=== PATIENT | female | born 1975 | race Caucasian/White ===

== ENCOUNTER 2020-04-09 14:41 | Emergency (ER) | payer MEDICAID ==
[~2020-04-09] VITALS: Ht 154.9 cm; Wt 64.4 kg
[2020-04-09 14:48] VITALS: BP 131/85
--- NOTE | 2020-04-09 14:57 | NUR ---
PER PT FELL X 1 WEEK AGO, PT WENT TO GET A MASSAGE ON ANKLE, DID NOT FOLLOW UP WITH A DOCTOR. PT CURRENTLY CONCERNED OF INJURY, PER PT REQUESTING XRAY. PT PRESENTS EUPNIC,VSS,A/OX4. NKA. HX NO. RX NO. DENIES NVD. LIMITED ROM;[facility]. SIDE RAIL X1.
--- NOTE | 2020-04-09 14:58 | NUR ---
PT RESTING IN BED, SIDE RAIL X1
[2020-04-09] MEDS ORDERED: IBUPROFEN 600 MG TAB PO ONE (15:15)
--- NOTE | 2020-04-09 16:23 | NUR ---
PT RESTING IN BED, SIDE RAIL X1
[2020-04-09 16:52] VITALS: BP 131/85
--- NOTE | 2020-04-09 16:53 | NUR ---
Patient discharged with v/s stable. Written and verbal after care instructions given and explained. Patient alert, oriented and verbalized understanding of instructions. Ambulatory with CRUTCHES. All questions addressed prior to discharge. ID band removed. Patient advised to follow up with PMD. Rx of MOTRIN given. Patient educated on indication of medication including possible reaction and side effects. Opportunity to ask questions provided and answered.
== END 2020-04-09 16:53 | disposition home or self-care (01) ==
LOC: MED 14:41
DX: S93.401A Sprain of unspecified ligament of right ankle, initial encounter (principal); R03.0 Elevated blood-pressure reading, without diagnosis of hypertension; X58.XXXA Exposure to other specified factors, initial encounter; Y93.89 Activity, other specified; Y92.89 Other specified places as the place of occurrence of the external cause; Y99.8 Other external cause status
CPT/HCPCS: 73610; 99283; Q0092

== ENCOUNTER 2022-06-19 10:36 | Emergency (ER) | payer MEDICAID ==
[~2022-06-19] VITALS: Ht 144.8 cm; Wt 65.3 kg
[2022-06-19 10:48] VITALS: BP 140/78
[2022-06-19] MEDS ORDERED: HYDR-5080 PO (11:57)
[2022-06-19] MEDS ORDERED: [UNRECOGNIZED DRUG - CODE] TP (11:57)
[2022-06-19] MEDS ORDERED: BACITRACIN OINT 500 UNITS/GM PKT TP ONE (12:00)
[2022-06-19 13:20] VITALS: BP 132/75
--- NOTE | 2022-06-19 13:21 | NUR ---
Patient discharged with v/s stable. Written and verbal after care instructions given and explained. Patient verbalized understanding. with steady gait. All questions addressed prior to discharge. Advised to follow up with PMD.
== END 2022-06-19 13:21 | disposition home or self-care (01) ==
LOC: MED 10:36
DX: T23.201A Burn of second degree of right hand, unspecified site, initial encounter (principal); T31.0 Burns involving less than 10% of body surface; Z79.899 Other long term (current) drug therapy; X10.2XXA Contact with fats and cooking oils, initial encounter; Y93.89 Activity, other specified; Y92.89 Other specified places as the place of occurrence of the external cause; Y99.8 Other external cause status
CPT/HCPCS: 99282